=== PATIENT | female | born 1945 | race Caucasian/White ===

== ENCOUNTER 2021-08-07 09:45 | Observation (INO) | payer OTHER, SELFPAY ==
[2021-08-07] VITALS (7 sets, daily range): BP systolic 131–168; BP diastolic 61–79; PULSE 66–83; RESP 16–20; TEMP 36.5–36.8; O2SAT 95–99; BMI 41.6
--- NOTE | 2021-08-07 10:02 | DI.RAD.S_ITS ---
PROCEDURE: XR CHEST 1V INDICATIONS: Possible stroke TECHNIQUE: One view of the chest was acquired. COMPARISON: [facility], CT, CT ANGIO CHEST PE, 01/30/2021, 12:12. FINDINGS: Surgical changes and devices: None. Lungs and pleura: Lungs are clear. No pleural effusions or pneumothorax. Mediastinum: Mediastinal contours appear normal. Heart size is normal. Bones and chest wall: No suspicious bony lesions. Overlying soft tissues appear unremarkable. IMPRESSION: No acute cardiopulmonary process demonstrated radiographically. Dictated by: José Montoya M.D. on 08/07/2021 at 10:27 Approved by: José Montoya M.D. on 08/07/2021 at 10:28
--- NOTE | 2021-08-07 10:02 | DI.CT.S_ITS ---
PROCEDURE: CT HEAD/BRAIN WO CON INDICATIONS: change in vision 2 days ago TECHNIQUE: Noncontrast 4.5 mm thick angled axial sections acquired from the foramen magnum to the vertex, with coronal and sagittal reformats. For radiation dose reduction, the following was used: automated exposure control, adjustment of mA and/or kV according to patient size. COMPARISON: None. FINDINGS: Image quality: Excellent. CSF spaces: Basal cisterns are patent. No extra-axial fluid collections. The ventricles are symmetric in size and shape. Brain: No intracranial bleeds or masses. There is cerebral volume loss for age, with resultant ventricular and sulcal prominence. There are periventricular and deep white matter chronic small vessel ischemic changes. There is intracranial internal carotid artery atherosclerosis. Skull and face: Calvarium and visualized facial bones appear intact, without suspicious lesions. Sinuses: Visualized sinuses and mastoids are clear. IMPRESSION: No acute intracranial finding. Dictated by: José Montoya M.D. on 08/07/2021 at 10:26 Approved by: José Montoya M.D. on 08/07/2021 at 10:27
--- NOTE | 2021-08-07 10:05 | PC.NURSE ---
Pts sx started 2 days ago,she had some blurred vision of left eye. Pts sx lasted approx 10 minutes. Pt went to eye doctor today and was sent here. pts eyes are dilated from that.
[2021-08-07 10:20] LABS: Add Manual Diff / Slide Review NO; Basophils Absolute Auto 100 /uL (0-100); Basophils Percent Auto 0.9 % (0-2); Eosinophils Absolute Auto 100 /uL (0-450); Eosinophils Percent Auto 2.5 % (2-4); Hematocrit 39.9 % (36-46); Hemoglobin 13.3 g/dL (12.0-16.0); Lymphocytes Absolute Auto 1600 /uL (1100-4500); Lymphocytes Percent Auto 26.8 % (25-40); Mean Corpuscular HGB Conc 33.4 % (30-36); Mean Corpuscular Hemoglobin 30.1 PG (26-34); Mean Corpuscular Volume 90.2 fL (80-100); Monocytes Absolute Auto 600 /uL (0-900); Monocytes Percent Auto 10.2 % (3-14); Neutrophils Absolute Auto 3600 /uL (1500-7000); Neutrophils Percent Auto 59.6 % (50-75); Platelet Count 303 X10^3/uL (150-400); Red Blood Cell Count 4.42 X10^6/uL (4.0-5.2); Red Cell Distribution Width 13.7 % (11.6-14.8)
[2021-08-07 10:24] LABS: Prothrombin Time 11.4 SECONDS (10.1-12.7)
[2021-08-07 10:27] LABS: PTT Partial Thromboplastin Tim 47 SECONDS (26.4-36.2)
[2021-08-07 10:30] LABS: Alanine Aminotransferase 22 IU/L (<35); Albumin 4.1 g/dL (3.5-5.0); Albumin Globulin Ratio 1.4 (1.0-2.8); Alkaline Phosphatase 49 U/L (38-126); Aspartate Aminotransferase 25 IU/L (14-36); BUN Creatinine Ratio 17.5 (6-22); Bilirubin Total 0.6 mg/dL (0.2-1.3); Blood Urea Nitrogen 11 mg/dL (7-17); Calcium 9.3 mg/dL (8.4-10.2); Carbon Dioxide 31 mmol/L (22-32); Chloride 103 mmol/L (98-107); Creatine Kinase 37 U/L (30-135); Estimated Glomerular Filt Rate > 60 mL/min (>60); Glucose 96 mg/dL (80-110); HEMOLYSIS 15 (0-50); Potassium 3.9 mmol/L (3.4-5.1); Sodium 136 mmol/L (137-145); Total Protein 7.1 g/dL (6.3-8.2)
--- NOTE | 2021-08-07 10:35 | DI.MRI.S_ITS ---
PROCEDURE: MR STROKE Pre- and post-contrast brain MRI, non-contrast brain MR angiogram, pre- and postcontrast neck MR angiogram INDICATIONS: Left eye vision loss TECHNIQUE: Brain: Noncontrast axial T1 spin echo, axial T2 fast spin echo, sagittal and axial FLAIR, coronal T2 fast spin echo, axial gradient echo, axial diffusion and ADC through the brain. After the administration of contrast, axial 3D VIBE of the cranial vasculature and brain. Brain MRA: Non-contrast 3-D time of flight MR angiogram, with multiple bjktoxl-uqxhesoqj-agnhppblwo (MIP) reformats performed. Neck MRA: Axial and sagittal TruFISP through the neck. Coronal dynamic MR angiogram during administration of contrast in the arterial and venous phases, with 3-dimenstional textyub-fclclobey-mzbeycrbwr (MIP) reformats constructed from subtraction images. COMPARISON: None. FINDINGS: Image quality: Excellent. BRAIN: CSF spaces: Ventricles are normal in size and shape. Basal cisterns are patent. No extra-axial fluid collections. Brain: No intracranial bleeds or mass effects. Randolph-white matter interface is normal. Diffusion weighted images show no acute ischemic insults. Brainstem appears normal. Normal intravascular flow voids are present. No abnormal intracranial enhancement. Moderate multifocal white matter chronic ischemic change noted predominantly in frontal lobes. Skull and face: Calvarial marrow signal is normal. Orbits appear normal. Bilateral intraocular lens replacements noted. Sinuses: Sinuses and mastoids are clear. BRAIN MR ANGIOGRAM: Anterior circulation: Intracranial internal carotid arteries are normal in size and enhancement. The flow within the paired anterior cerebral arteries is normal and symmetric. The flow within the middle cerebral arteries is normal and symmetric. The anterior communicating artery is seen. No stenoses, occlusions, or aneurysms. Posterior circulation: The visualized portions of the vertebral arteries demonstrate normal caliber, and join to form a normal appearing basilar artery. The flow within the posterior cerebral arteries is normal and symmetric. No stenoses, occlusions, or aneurysms. NECK MR ANGIOGRAM: Carotids: Great vessels demonstrate a conventional anatomy as they arise from the aortic arch. The origins of the common carotid arteries appear patent. The calibers and courses of both common carotid arteries are normal. The bifurcation regions appear normal bilaterally. The internal carotid arteries demonstrate normal course and caliber. Posterior circulation: The origins of the vertebral arteries appear patent. More superior portions of both vertebral arteries demonstrate normal course and caliber, and join to form a normal appearing basilar artery. Miscellaneous: Subclavian arteries appear patent. Pre-contrast images through the neck show no soft tissue abnormalities. IMPRESSION: 1. Moderate white matter chronic ischemic change without intracranial hemorrhage, infarct or mass lesion 2. Unremarkable MR angiogram of brain without large vessel occlusion, aneurysm or vascular malformation. 3. Unremarkable MR angiogram of the neck without ICA stenosis Approved by: Juan Pablo Steele M.D. on 08/07/2021 at 10:36
--- NOTE | 2021-08-07 10:36 | ED_ITS ---
HPI - Neuro Symptoms/Deficit General Chief Complaint: Neuro Symptoms/Deficit Stated Complaint: possiable mini stroke ref. by eye Time Seen by Provider: 08/07/21 10:26 Source: patient and family Mode of arrival: Ambulatory History of Present Illness HPI Narrative: Patient here with . Sent here from ophthalmology office after eye exam this morning. I did speak with chair lift operator. Patient therefore left eye vision loss that occurred [address] Bynum, chair lift operator states to me that her eye exam is normal. She needs evaluation for TIA/stroke. Patient states 2 days ago she was driving and had randolph area in her vision the top 3rd of the visual field. Has had ongoing diffuse headache, not worst of life. Has his tory of migraines and has had these before but not had visual loss before. No numbness tingling or weakness. No slurred speech or facial droop. No confusion or altered mental status. at bedside. No history atrial fibrillation. Patient is allergic to CT IV contrast. I spoke with MRI and able to get patient MRI here today. At this time no complaints. Vision loss 2 days ago lasted 10 minutes. On Anticoagulants: Yes (feverfew only to treat migraines) Related Data Home Medications Medication Instructions Recorded Confirmed levothyroxine 75 mcg tablet 75 mcg PO DAILY 08/07/21 08/07/21 lisinopril 20 mg tablet 20 mg PO DAILY 08/07/21 08/07/21 Previous Rx's Medication Instructions Recorded aspirin 81 mg tablet,delayed 81 mg PO DAILY #30 tab 08/08/21 release Allergies Allergy/AdvReac Type Severity Reaction Status Date / Time Iodine and Iodide Containing Allergy Severe Difficulty Verified 08/07/21 10:02 Produc Breathing milk Allergy Severe Swelling Verified 08/07/21 10:02 of the Eye shrimp Allergy Severe Difficulty Verified 08/07/21 10:02 Breathing Review of Systems Review of Systems Narrative: GENERAL: Denies chills, fatigue, malaise, fever, sweats. HEENT: Denies sinus pain, ear pain, sore throat RESPIRATORY: Denies dyspnea, cough CARDIOVASCULAR: Denies chest pain, palpitations GASTROINTESTINAL: Denies nausea, vomiting, abdominal pain : Denies dysuria, frequency, hematuria MUSCULOSKELETAL: denies muscle or bony pain SKIN: Denies rash, skin lesions NEUROLOGIC: Denies weakness, numbness, positive headache, positive vision loss, negative for numbness tingling or weakness or slurred speech or facial droop ROS Unobtainable: All systems reviewed & are unremarkable except as noted in HPI and below Hematologic/Lymphatic On Anticoagulants: Yes (feverfew only to treat migraines) Patient History Social History household members: spouse Smoking Status: Never smoker alcohol intake: current Smoking Status: Never smoker alcohol intake frequency: holidays/special occasions only Substance Use Type: does not use Exam Narrative Exam Narrative: GENERAL: in no distress, not toxic not dyspneic HEAD: Normocephalic. EYES: Pupils equal round No scleral icterus. EOMI/no pain with eye movement. Pupils are dilated from ophthalmology visit this morning ENT: Mucous membranes moist. NECK: Trachea midline. No carotid bruits CARDIOVASCULAR: Regular rate and rhythm without murmurs RESPIRATORY: Clear to auscultation. Breath sounds equal bilaterally. No wheezes, rales, or rhonchi. GASTROINTESTINAL: Abdomen soft, non-tender EXTREMITIES: No gross deformities. BACK: No flank tenderness. NEURO: AOx4. Clear speech no facial droop steady self gait no foot drop. Light touch intact to bilateral face hands and ankles. Strong equal bell spinner bilaterally and ankle flexion hip flexion and knee flexion. Strong bilateral patellar reflexes. Steady Romberg, negative pronator drift SKIN: Warm and dry PSYCH: Not anxious, is cooperative Initial Vital Signs Initial Vital Signs: Vital Signs Temperature 97.9 F 08/07/21 09:45 Pulse Rate 77 08/07/21 09:45 Respiratory Rate 18 08/07/21 09:45 Blood Pressure 168/78 H 08/07/21 09:45 Pulse Oximetry 98 08/07/21 09:45 Scores NIH Stroke Scale Level of Conciousness: Alert, keenly responsive Ask month/age: Answers both questions correctly. Open/close eyes, close hand: Performs both tasks correctly Best gaze horizontal: Normal Visual malcolm: No visual loss Facial palsy: Normal symetrical movement Left arm drift: No drift for full 10 sec Right arm drift: No drift for full 10 sec Left leg drift: No drift for full 5 sec Right leg drift: No drift for full 5 sec Limb ataxia: Absent Sensory on face/arms/legs: Normal, no sensory loss Best language: No aphasia, normal Dysarthria: Normal Extinction or inattention: No abnormality Total NIH Stroke scale score: 0 Course Course Course Narrative: No new issues during course of stay Orders Ordered: Discontinued Medications Acetaminophen (Acetaminophen 325 Mg Tablet) 325 mg PO Q6HR PRN PRN Reason: Fever/Mild Pain (1-3) Last Admin: 08/08/21 09:01 Dose: 325 mg Documented by: Admin: 08/07/21 15:57 Dose: 162.5 mg Documented by: GOVIND Aspirin (Aspirin Ec 81 Mg Tablet) 81 mg PO NOW ONE Stop: 08/07/21 13:01 Last Admin: 08/07/21 13:05 Dose: 81 mg Documented by: SAIDA Aspirin (Aspirin Ec 81 Mg Tablet) 81 mg PO DAILY [facility] Last Admin: 08/08/21 09:01 Dose: 81 mg Documented by: GOVIND Clopidogrel Bisulfate (Clopidogrel 75 Mg Tablet) 75 mg PO NOW ONE Stop: 08/07/21 13:01 Last Admin: 08/07/21 13:05 Dose: 75 mg Documented by: SAIDA Clopidogrel Bisulfate (Clopidogrel 75 Mg Tablet) 75 mg PO DAILY [facility] Last Admin: 08/08/21 09:01 Dose: 75 mg Documented by: GOVIND Dextrose (Dextrose 50 % In Water 25 Gm/50 Ml Syringe) 25 gm IV PRN PRN; Protocol PRN Reason: Hypoglycemia Insulin Glargine (Insulin Glargine 100 Unit/Ml 3ml Pen) 15 unit SUBCUT BEDTIME [facility] Insulin Human Lispro (Insulin Lispro 100 Unit/Ml 3ml Vial) 0 unit SUBCUT Q6H [facility]; Protocol Last Admin: 08/08/21 10:42 Dose: Not Given Documented by: GOVIND Levothyroxine Sodium (Levothyroxine 75 Mcg Tablet) 75 mcg PO 0600 [facility] Last Admin: 08/08/21 05:39 Dose: 75 mcg Documented by: MARTY Lisinopril (Lisinopril 20 Mg Tablet) 20 mg PO BEDTIME [facility] Last Admin: 08/07/21 23:29 Dose: 20 mg Documented by: MARTY Sodium Chloride (Sodium Chloride 0.9% Flush) 10 ml IV PRN PRN PRN Reason: Flush Sodium Chloride (Sodium Chloride 0.9% Flush) 10 ml IV BID [facility] Last Admin: 08/08/21 09:02 Dose: 10 ml Documented by: Admin: 08/07/21 19:59 Dose: 10 ml Documented by: MARTY Reevaluation(s) Reevaluation #1: No new issues. Imaging and laboratory studies reviewed patient and . Reviewed my conversation with hospitalist as well as stroke team with patient and . Agree for admit. Time: 12:54 Consultations Consultation #1: Spoke with tele stroke, neurologist, Dr. Rhoades, she instructed to have patient admitted for observation and echocardiogram. As well as start aspirin 81 mg daily as well as Plavix 75 mg daily. No loading dose. Time: 11:52 Consultation #2: Spoke with hospitalist, Dr. Smart, will admit for observation Time: 12:54 Vital Signs Vital signs: Vital Signs - 8 hr 08/07/21 09:45 Temperature 97.9 F Pulse Rate 77 Respiratory Rate 18 Blood Pressure 168/78 H Pulse Oximetry 98 MDM - Neuro Symptoms/Deficit Differential Diagnosis Differential diagnosis: Likely cerebrovascular accident, transient cerebral ischemia and other (Amaurosis fugax/ocular migraine) Lab Data Result diagrams: 08/08/21 05:41 08/07/21 10:10 Labs: Lab Results 08/07/21 08/07/21 08/07/21 Range/Units 10:10 10:10 10:10 WBC 6.0 (4.5-11.0) X10^3/uL RBC 4.42 (4.0-5.2) X10^6/uL Hgb 13.3 (12.0-16.0) g/dL Hct 39.9 (36-46) % MCV 90.2 (80-100) fL MCH 30.1 (26-34) PG MCHC 33.4 (30-36) % RDW 13.7 (11.6-14.8) % Plt Count 303 (150-400) X10^3/uL Neut % (Auto) 59.6 (50-75) % Lymph % (Auto) 26.8 (25-40) % Kane % (Auto) 10.2 (3-14) % Eos % (Auto) 2.5 (2-4) % Baso % (Auto) 0.9 (0-2) % Neut # (Auto) 3600 (3346-6967) /uL Lymph # (Auto) 1600 (7754-1738) /uL Kane # (Auto) 600 (0-900) /uL Eos # (Auto) 100 (0-450) /uL Baso # (Auto) 100 (0-100) /uL PT 11.4 (10.1-12.7) SECONDS INR 1.0 (0.9-1.3) APTT 47 H (26.4-36.2) SECONDS Sodium 136 L (137-145) mmol/L Potassium 3.9 (3.4-5.1) mmol/L Chloride 103 (98-107) mmol/L Carbon Dioxide 31 (22-32) mmol/L BUN 11 (7-17) mg/dL Creatinine 0.63 (0.52-1.04) mg/dL Estimated GFR > 60 (>60) mL/min BUN/Creatinine Ratio 17.5 (6-22) Glucose 96 (80-110) mg/dL Calcium 9.3 (8.4-10.2) mg/dL Total Bilirubin 0.6 (0.2-1.3) mg/dL AST 25 (14-36) IU/L ALT 22 (<35) IU/L Alkaline Phosphatase 49 (38-126) U/L Total Creatine Kinase 37 (30-135) U/L CK-MB (CK-2) TNP CK-MB (CK-2) Rel Index TNP Troponin I < 0.012 (0.01-0.034) ng/mL Total Protein 7.1 (6.3-8.2) g/dL Albumin 4.1 (3.5-5.0) g/dL Globulin 3.0 (1.7-4.1) g/dL Albumin/Globulin Ratio 1.4 (1.0-2.8) Urine Dip Bedside Urine Glucose Negative Bedside Urine Bilirubin - Negative Bedside Urine Ketone - Negative Urine Specific Clarissa 1.015 Bedside Urine Occult Blood - Negative Bedside Urine pH 6.0 Bedside Urine Protein - Negative Bedside Urine Urobilinogen 0.02 Bedside Urine Nitrite - Negative Bedside Urine Leukocytes - Negative Esterase Imaging Data CT scan - head: Radiologist's Impression: [address] [address] [address] Scan Report Signed Patient: Ronda Brooke MR#: [id number] : 1945 Acct:[id number] Age/Sex: 76 / F Date of Service: 08/07/21 Loc: ED Accession Number: [id number] ?? Procedure: CT head/brain wo con Ordering Provider: Aamir Miles MD PROCEDURE:? CT HEAD/BRAIN WO CON ? INDICATIONS:? change in vision 2 days ago ? TECHNIQUE:? Noncontrast 4.5 mm thick angled axial sections acquired from the foramen magnum to the vertex, with coronal and sagittal reformats.? For radiation dose reduction, the following was used:? automated exposure control, adjustment of mA and/or kV according to patient size.? ? COMPARISON:? None. ? FINDINGS:? Image quality:? Excellent.? ? CSF spaces:? Basal cisterns are patent.? No extra-axial fluid collections.? The ventricles are symmetric in size and shape.? ? Brain:? No intracranial bleeds or masses.? There is cerebral volume loss for age, with resultant ventricular and sulcal prominence.? There are periventricular and deep white matter chronic small vessel ischemic changes.? There is intracranial internal carotid artery atherosclerosis.? ? Skull and face:? Calvarium and visualized facial bones appear intact, without suspicious lesions.? ? Sinuses:? Visualized sinuses and mastoids are clear.? ? IMPRESSION:? No acute intracranial finding.? ? ? Dictated by: José Montoya M.D. on 08/07/2021 at 10:26 ? ? Approved by: José Montoya M.D. on 08/07/2021 at 10:27 ? Chest x-ray: Radiologist's Impression: [place] [address] XRay Report Signed Patient: Ronda Brooke MR#: [id number] : 1945 Acct:[id number] Age/Sex: 76 / F Date of Service: 08/07/21 Loc: ED Accession Number: [id number] ?? Procedure: XR chest 1V Ordering Provider: Aamir Miles MD PROCEDURE:? XR CHEST 1V ? INDICATIONS:? Possible stroke ? TECHNIQUE:? One view of the chest was acquired.? ? COMPARISON:? [facility], CT, CT ANGIO CHEST PE, 01/30/2021, 12:12. ? FINDINGS:? ? Surgical changes and devices:? None.? ? Lungs and pleura:? Lungs are clear.? No pleural effusions or pneumothorax.? ? Mediastinum:? Mediastinal contours appear normal.? Heart size is normal.? ? Bones and chest wall:? No suspicious bony lesions.? Overlying soft tissues appear unremarkable.? ? IMPRESSION:? No acute cardiopulmonary process demonstrated radiographically. ? ? Dictated by: José Montoya M.D. on 08/07/2021 at 10:27 ? ? Approved by: José Montoya M.D. on 08/07/2021 at 10:28 ? MRI stroke protocol: Radiologist's Impression: [address] [address] Magnetic Resonance Report Signed Patient: Ronda Brooke MR#: [id number] : 1945 Acct:[id number] Age/Sex: 76 / F Date of Service: 08/07/21 Loc: ED Accession Number: [id number] ?? Procedure: MR stroke Ordering Provider: Aamir Miles MD PROCEDURE:? MR STROKE Pre- and post-contrast brain MRI, non-contrast brain MR angiogram, pre- and postcontrast neck MR angiogram ? INDICATIONS:? Left eye vision loss ? TECHNIQUE:? Brain:? Noncontrast axial T1 spin echo, axial T2 fast spin echo, sagittal and axial FLAIR, coronal T2 fast spin echo, axial gradient echo, axial diffusion and ADC through the brain.? After the administration of contrast, axial 3D VIBE of the cranial vasculature and brain.? Brain MRA:? Non-contrast 3-D time of flight MR angiogram, with multiple yohpwqy-gbogczdxa-mlanqhyemz (MIP) reformats performed.? Neck MRA:? Axial and sagittal TruFISP through the neck.? Coronal dynamic MR angiogram during administration of contrast in the arterial and venous phases, with 3- dimenstional hjbdguv-djagvzcwt-atuspmpvfm (MIP) reformats constructed from subtraction images.? ? COMPARISON:? None. ? FINDINGS:? Image quality:? Excellent.? ? BRAIN:? CSF spaces:? Ventricles are normal in size and shape.? Basal cisterns are patent.? No extra-axial fluid collections.? Brain:? No intracranial bleeds or mass effects.? Randolph-white matter interface is normal.? Diffusion weighted images show no acute ischemic insults.? Brainstem appears normal.? Normal intravascular flow voids are present.? No abnormal intracranial enhancement.? Moderate multifocal white matter chronic ischemic change noted predominantly in frontal lobes. Skull and face:? Calvarial marrow signal is normal.? Orbits appear normal.? Bilateral intraocular lens replacements noted.? Sinuses:? Sinuses and mastoids are clear.? ? BRAIN MR ANGIOGRAM:? Anterior circulation:? Intracranial internal carotid arteries are normal in size and enhancement.? The flow within the paired anterior cerebral arteries is normal and symmetric.? The flow within the middle cerebral arteries is normal and symmetric.? The anterior communicating artery is seen.? No stenoses, occlusions, or aneurysms.? Posterior circulation:? The visualized portions of the vertebral arteries demonstrate normal caliber, and join to form a normal appearing basilar artery.? The flow w ithin the posterior cerebral arteries is normal and symmetric.? No stenoses, occlusions, or aneurysms.? ? NECK MR ANGIOGRAM:? Carotids:? Great vessels demonstrate a conventional anatomy as they arise from the aortic arch.? The origins of the common carotid arteries appear patent.? The calibers and courses of both common carotid arteries are normal.? The bifurcation regions appear normal bilaterally.? The internal carotid arteries demonstrate normal course and caliber. ? Posterior circulation:? The origins of the vertebral arteries appear patent.? More superior portions of both vertebral arteries demonstrate normal course and caliber, and join to form a normal appearing basilar artery.? Miscellaneous:? Subclavian arteries appear patent.? Pre-contrast images through the neck show no soft tissue abnormalities.? ? IMPRESSION:? ? 1. Moderate white matter chronic ischemic change without intracranial hemorrhage, infarct or mass lesion ? 2. Unremarkable MR angiogram of brain without large vessel occlusion, aneurysm or vascular malformation. ? 3. Unremarkable MR angiogram of the neck without ICA stenosis ? Approved by: Juan Pablo Steele M.D. on 08/07/2021 at 10:36? ECG Data Interpretation: Normal sinus rhythm rate [address] elevation or depression MDM Narrative Medical decision making narrative: Appropriate for admission for observation for TIA event. Reviewed with hospitalist agree for admit. Reviewed with patient and agrees for admit. I did contact tele stroke, neurologist on-call for recommendations and agree for admit for balance of workup for TIA/stroke Discharge Plan Departure Patient Disposition: Admitted as Observation Clinical Impression: Transient cerebral ischemia Admit Date/Time: 08/07/21 12:53 Admit Provider: Alice Smart
[2021-08-07 10:42] LABS: Troponin I < 0.012 ng/mL (0.01-0.034)
--- NOTE | 2021-08-07 11:52 | DI.ECHO.S_ITS ---
[facility] +---------+ : : [address] : : : : [id number] : : : : Phone: [phone]+ Echocardiogram Report + + :Name: CHEYENNE VICENTE Study Date: 08/07/2021 Height: 63 in : :[facility] ReadingLocation: Weight: 235 lb : : Gender: Female BSA: 2.1 m2 : :: 1945 Age: 76 yrs BP: 168/78 mmHg: :Reason For Study: TIA : :Ordering Physician: : :PEBBLES HARPER Performed By: Barrie Arndt : :Referring: PEBBLES HARPER : + + Interpretation Summary Left ventricular wall thickness is mildly increased. The ejection fraction is estimated to be 55-60%. Injection of contrast documented no interatrial shunt. There is mild aortic regurgitation. Procedure: A two-dimensional transthoracic echocardiogram with color flow and Doppler was performed. The study quality was technically adequate. There is no prior echocardiogram noted for this patient. Left Ventricle: The left ventricle is normal in size. Left ventricular wall thickness is mildly increased. Left ventricular systolic function is normal. The ejection fraction is estimated to be 55-60%. There are no focal wall motion abnormalities. Diastolic function could not be accurately assessed due to unobtainable data. Right Ventricle: The right ventricle is normal in size and function. Atria: Both atria are normal in size. The interatrial septum grossly appears intact with no obvious evidence for an atrial septal defect. Injection of contrast documented no interatrial shunt. Mitral Valve: There is mild mitral annular calcification. There is trace mitral regurgitation. Aortic Valve: The aortic valve is normal in structure and function. There is mild aortic regurgitation. Tricuspid Valve: The tricuspid valve is normal in structure and function. There is trace tricuspid regurgitation. Pulmonary artery pressures cannot be estimated because of the lack of a measurable TR jet velocity. Pulmonic Valve: The pulmonic valve is not well visualized. Great Vessels: The aortic root is normal size. The ascending aorta could not be visualized. The IVC is of normal diameter and collapses greater than 50% with a sniff. This suggests a low right atrial pressure of 3 mm Hg. Pericardium/ Pleura There is no pericardial effusion. There is no pleural effusion. MMode/2D Measurements & Calculations LVIDd: 5.2 cm LVOT diam: 1.8 cm LVIDs: 3.8 cm Ao root diam: 3.2 cm FS: 27.5 % IVSd: 1.2 cm LVPWd: 0.78 cm LV reyes. diameter/BSA (cm/m^2): 2.5 LV sys. diameter/BSA (cm/m^2): 1.8 LA A2 area: 19.9 cm2 RA long axis: 5.8 cm LA A4 area: 20.4 cm2 RA area: 17.2 cm2 LA length (vol): 6.1 cm RA vol: 43.6 ml LA vol: 56.6 ml RA : 21.0 ml/m2 LA vol index: 27.4 ml/m2 IVC diam: 2.1 cm TAPSE: 2.7 cm Doppler Measurements & Calculations Ao V2 max: 185.8 cm/sec LVOT Max Nura: 157.9 cm/sec Ao V2 mean: 128.0 cm/sec LV V1 max P.0 mmHg Ao max P.8 mmHg LV V1 VTI: 37.4 cm Ao mean P.4 mmHg JAIR(I,D): 2.6 cm2 Ao V2 VTI: 38.3 cm JAIR(V,D): 2.2 cm2 sev ratio: 0.98 JAIR indexed to BSA (cm^2/m^2): 1.2 AI P1/2t: 617.4 msec AI dec slope: 217.1 cm/sec2 MV E max nura: 70.6 cm/sec SV(LVOT): 98.1 ml MV A max nura: 73.6 cm/sec MV E/A: 0.96 Med Peak E' Nura: 4.3 cm/sec E/E' med: 16.5 Lat Peak E' Nura: 9.9 cm/sec E/E' lat: 7.2 E/e' average: 11.8 MV dec time: 0.27 sec Reading Physician:02:08 PM
--- NOTE | 2021-08-07 12:02 | PC.NURSE ---
ECHO being perfomred in room
[2021-08-07] MEDS: CLOPIDOGREL 75 MG TABLET PO (13:05)
[2021-08-07] MEDS: ASPIRIN EC 81 MG TABLET PO (13:05)
[2021-08-07 13:28] LABS: COVID19 -Nasal RAPID Negative (Negative)
[2021-08-07] MEDS: ACETAMINOPHEN 325 MG TABLET PO (15:57)
--- NOTE | 2021-08-07 17:07 | PM.HP.1 ---
History of Present Illness History of Present Illness Chief complaint: possiable mini stroke ref. by eye drAriadne Narrative: 76yo female with a hx of hypertension and hypothyroidism that presented with left eye partial vision loss that has since self-resolved. The patient states this all started approximately 3-4 days ago, when she developed migraine headaches that she describes as a band of throbbing pain, bilaterally. She denies nausea, vision changes, or disability from these migraine headaches. She denies taking any medicine for this, aside from Mucinex, as she thought it might be sinus-related. Importantly, she denies taking pseudoephedrine-containing medicines. This worsened 2 days ago, when she was driving to physical therapy. She recently sustained 3 left-sided, non-surgical rib fractures after a mechanical fall at home, and this is why she goes to PT. While driving there, she noticed a curtain falling over my left eye that then improved after 10-15 minutes on its own. She denies this has ever happened before. Denies seizure-like activity when this occurred, hand/arm/leg weakness, facial droop, language difficulties, denies n/v, and denies tremors or heart racing at the time and denies being hypoglycemic as she'd just eaten. Today, the patient went to an freight separator, who completed a full eye exam and found it to be unremarkable, and so sent pt here for evaluation. Patient denies ever smoking tobacco or using illicit drugs or drinking EtOH excessively. She endorses a PSH of partial hysterectomy, appendectomy. 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 She lives nearby with her . Patient History Family & Social History Social History: household members spouse Prior Living Arrangements House Safety & Behavioral: Feels Safe in Current Yes Environment Been Physically Hurt or No Threatened By a Person Tobacco & Substance use: Smoking Status Never smoker alcohol intake current alcohol intake frequency holiday/special occasion Substance Use Type does not use Meds Home Medications and Allergies Home Medications Medication Instructions Recorded Confirmed Type levothyroxine 75 mcg tablet 75 mcg PO DAILY 08/07/21 08/07/21 History lisinopril 20 mg tablet 20 mg PO DAILY 08/07/21 08/07/21 History Allergies Allergy/AdvReac Type Severity Reaction Status Date / Time Iodine and Iodide Containing Allergy Severe Difficulty Verified 08/07/21 10:02 Produc Breathing milk Allergy Severe Swelling Verified 08/07/21 10:02 of the Eye shrimp Allergy Severe Difficulty Verified 08/07/21 10:02 Breathing IV Contrast Allergy Severe Difficulty Uncoded 08/07/21 10:02 Breathing Review of Systems Constitutional Comments: Denies fever/chills, night sweats, weight loss Eyes Comments: Endorses left eye vision loss that has since returned Cardiovascular Comments: Denies CP, palpitations, edema Respiratory Comments: Denies SOB, cough, URI sxs Gastrointestinal Comments: Denies abd pain, n/v/d Integumentary/Breasts Comments: Denies new skin lesions Neurologic Comments: Denies hand/arm/leg weakness, expressive/receptive aphasia, seizure-like activity, or urinary/bowel incontinence Exam Vital Signs (past 8 hours): - 08/07/21 09:45 08/07/21 13:27 08/07/21 13:32 Temperature 97.9 F Pulse Rate 77 81 82 Respiratory Rate 18 20 Blood Pressure 168/78 H 145/78 H 136/61 Pulse Oximetry 98 98 96 Oxygen Delivery Method Room Air Const Other: Patient sitting up in bed upon my entering the room, ordering dinner, and in no apparent acute distress, larger body habitus noted Eyes Other: EOMI, PERRLA Neck Other: No carotid bruits appreciated Resp Other: Lungs clear to auscultation bilaterally Cardio Other: RRR, S1 and S2 heart sounds normal, with no extra heart sounds or murmurs appreciated GI Other: Soft, non-distended, non-tender, bowel sounds present Skin Other: No grossly abnormal skin lesions noted Neuro Other: CN II-XII grossly intact, with no focal neurological deficits appreciated Extrem Other: Palpable radial and dorsalis pedis pulses bilaterally Objective Labs Result Diagrams: 08/07/21 10:10 08/07/21 10:10 Labs: Laboratory Results - last 24 hr 08/07/21 08/07/21 08/07/21 10:10 10:10 10:10 WBC 6.0 RBC 4.42 Hgb 13.3 Hct 39.9 MCV 90.2 MCH 30.1 MCHC 33.4 RDW 13.7 Plt Count 303 Neut % (Auto) 59.6 Lymph % (Auto) 26.8 [place] % (Auto) 10.2 Eos % (Auto) 2.5 Baso % (Auto) 0.9 Neut # (Auto) 3600 Lymph # (Auto) 1600 [place] # (Auto) 600 Eos # (Auto) 100 Baso # (Auto) 100 PT 11.4 INR 1.0 APTT 47 H Sodium 136 L Potassium 3.9 Chloride 103 Carbon Dioxide 31 BUN 11 Creatinine 0.63 Estimated GFR > 60 BUN/Creatinine Ratio 17.5 Glucose 96 Calcium 9.3 Total Bilirubin 0.6 AST 25 ALT 22 Alkaline Phosphatase 49 Total Creatine Kinase 37 CK-MB (CK-2) TNP CK-MB (CK-2) Rel Index TNP Troponin I < 0.012 Total Protein 7.1 Albumin 4.1 Globulin 3.0 Albumin/Globulin Ratio 1.4 SARS-CoV-2 (PCR) 08/07/21 12:54 WBC RBC Hgb Hct MCV MCH MCHC RDW Plt Count Neut % (Auto) Lymph % (Auto) [place] % (Auto) Eos % (Auto) Baso % (Auto) Neut # (Auto) Lymph # (Auto) [place] # (Auto) Eos # (Auto) Baso # (Auto) PT INR APTT Sodium Potassium Chloride Carbon Dioxide BUN Creatinine Estimated GFR BUN/Creatinine Ratio Glucose Calcium Total Bilirubin AST ALT Alkaline Phosphatase Total Creatine Kinase CK-MB (CK-2) CK-MB (CK-2) Rel Index Troponin I Total Protein Albumin Globulin Albumin/Globulin Ratio SARS-CoV-2 (PCR) Negative Assessment & Plan Assessment & Plan narrative: Assessment: 1. Amaurosis fugax, left orbit, likely secondary to TIA, self-resolved 2. Possible VERENICE, leading to silent atrial fibrillation 3. Obesity, class 3, with BMI 42 4. Hypertension 5. Hypothyroidism Plan: 1. CT head, MRI/MRA head/neck unremarkable, with echocardiogram negative for PFO. Aspirin 81 mg daily and Plavix 75 mg daily for 21 days, and then can continue on aspirin 81 mg daily monotherapy. Risk stratification labs ordered. Telemetry on-board. 2. STOP-BANG score is high, and patient would benefit from outpatient sleep study. Untreated VERENICE could be leading to silent atrial fibrillation, which might explain patient's presenting complaints. 3. Likely adversely affecting all pt's comorbidities. Counseling provided. 4. Continue home lisinopril 20 mg daily. 5. Continue home levothyroxine 75 mcg daily. VTE prophylaxis: SCD's, observation status, anticipate discharge tomorrow Code Status: Full Code Proxy: I have utilized all available immediate resources to obtain, update, or confirm the patient's current medications. Time Spent With Patient Critical Care time: I spent a total of [] minutes of critical care time on this patient's care today; this time is exclusive of procedural time. Quality VTE Deep Vein Thrombosis/Pulmonary Embolism Present on Admission: No MIPS - Admit I confirm the patient?s Advance Care Plan is present, Code status is documented, Surrogate decision maker is in patient?s record [If Yes, STOP here]: Yes
[2021-08-07] MEDS: SODIUM CHLORIDE 0.9% FLUSH 10 ML IV (19:59)
[2021-08-07] MEDS: lisinopriL 20 MG TABLET PO (23:29)
[2021-08-08] MEDS: LEVOTHYROXINE 75 MCG TABLET PO (05:39)
[2021-08-08 05:58] LABS: Hematocrit 37.7 % (36-46); Hemoglobin 12.5 g/dL (12.0-16.0); Mean Corpuscular HGB Conc 33.1 % (30-36); Mean Corpuscular Hemoglobin 29.8 PG (26-34); Platelet Count 280 X10^3/uL (150-400); Red Blood Cell Count 4.19 X10^6/uL (4.0-5.2); Red Cell Distribution Width 13.8 % (11.6-14.8); White Blood Cell Count 5.5 X10^3/uL (4.5-11.0)
[2021-08-08 06:08] VITALS: BP 130/75; PULSE 66; RESP 16; TEMP 36.6; O2SAT 96
[2021-08-08 06:10] LABS: Cholesterol 197 mg/dL (140-199); HDL Cholesterol 58 mg/dL (40-60); LDL Cholesterol Calculated 122 mg/dL (<100); Triglycerides 85 mg/dL (35-150)
[2021-08-08 06:14] LABS: Hemoglobin A1C% w Est Avg Glu 5.5 % (4.0-6.0)
[2021-08-08 08:07] VITALS: BP 126/68; PULSE 64; RESP 19; TEMP 36.2; O2SAT 98
[2021-08-08] MEDS: CLOPIDOGREL 75 MG TABLET PO (09:01)
[2021-08-08] MEDS: ACETAMINOPHEN 325 MG TABLET PO (09:01)
[2021-08-08] MEDS: ASPIRIN EC 81 MG TABLET PO (09:01)
[2021-08-08] MEDS: SODIUM CHLORIDE 0.9% FLUSH 10 ML IV (09:02)
[2021-08-08 09:38] LABS: C-Reactive Protein Quant < 0.5 mg/dL (<1.0)
[2021-08-08 09:53] LABS: Erythrocyte Sedimentation Rate 16 MM/HR (0-20)
--- NOTE | 2021-08-08 10:34 | CM.DANOTE ---
Discharge Assessment Note: Patient is 76yo female admitted to hospitalist team for possible TIA with amaurosis fugax symptom reported for observation with anticipated discharge of 08/08. Per hospitalist in rounds 08/08, patient is pending test results prior to discharge decision being finalized for today. Patient does anticipate and want to discharge home as soon as medically ready. PCP: Db Hayward INS: [place] Medicare Adv Patient alone in room when social worker assistant entered; social worker assistant introduced self and informed of social work role in hospital. Patient reports no history with SNF or HH, no O2 use at home and no DME or adaptive devices used/needed at this time. Patient reports being fully independent at home and drives self. Patient has steps to enter mobile home but no other stairs in home; patient reports no concerns with stairs. Patient resides with spouse who is able to be her transportation home via POV at time of discharge. No identified discharge planning needs at this time. Osorio SCHULZ Discharge Planning/Care Management CM Discharge Assessment Start: 08/08/21 10:32 Freq: Status: Active Protocol: Document 08/08/21 10:32 GAYLE (Rec: 08/08/21 10:34 GAYLE [id number]) Discharge Planning Assessment Assigned [facility] Pharmacy Technician Osorio SCHULZ DPOA/Assigned Designee Name SpouseObi Contact Information [phone] Advance Directives? Yes Advance Directives on File No History Provided By Patient,Medical Record Has Patient been admitted in last 30 No days? Prior Living Arrangements Mobile home Household Members spouse Type of transporation used prior to Drives own vehicle admit Independent with ADL's Yes Is patient alert and oriented? Yes Caregiver for Another No Barriers to Discharge No Discharge Plan Home Transportation Arrangement spouse via pov Referrals Initiated None needed Whiteboard Updated in Patient Room with Yes name and ext. # of [facility] Pharmacy Technician Review Status In Process Next Review Type Continued Stay Review
--- NOTE | 2021-08-08 10:46 | PM.DS.1 ---
History of Present Illness History of Present Illness Date Patient Seen: 08/08/21 Chief complaint: possiable mini stroke ref. by eye drAriadne Narrative: 76yo female with a hx of hypertension and hypothyroidism that presented with left eye partial vision loss that has since self-resolved. The patient states this all started approximately 3-4 days ago, when she developed migraine headaches that she describes as a band of throbbing pain, bilaterally. She denies nausea, vision changes, or disability from these migraine headaches. She denies taking any medicine for this, aside from Mucinex, as she thought it might be sinus-related. Importantly, she denies taking pseudoephedrine-containing medicines. This worsened 2 days ago, when she was driving to physical therapy. She recently sustained 3 left-sided, non-surgical rib fractures after a mechanical fall at home, and this is why she goes to PT. While driving there, she noticed a curtain falling over my left eye that then improved after 10-15 minutes on its own. She denies this has ever happened before. Denies seizure-like activity when this occurred, hand/arm/leg weakness, facial droop, language difficulties, denies n/v, and denies tremors or heart racing at the time and denies being hypoglycemic as she'd just eaten. Today, the patient went to an business support professional, who completed a full eye exam and found it to be unremarkable, and so sent pt here for evaluation. Patient denies ever smoking tobacco or using illicit drugs or drinking EtOH excessively. She endorses a PSH of partial hysterectomy, appendectomy. 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 She lives nearby with her . Discharge Providers Provider Date of admission: 08/07/21 12:53 Discharge Date: 08/08/21 Primary care physician: Db Hayward MD Discharge provider: Benji Rosales MD Summary Hospital Course Discharge Diagnosis: 1. Amaurosis fugax, left orbit, likely secondary to TIA, self-resolved 2. Possible VERENICE, leading to silent atrial fibrillation 3. Obesity, class 3, with BMI 42 4. Hypertension 5. Hypothyroidism Hospital Course: 1. CT head, MRI/MRA head/neck unremarkable, with echocardiogram negative for PFO. Aspirin 81 mg daily and Plavix 75 mg daily, rationalized on discharge to just aspirin given the uniformly negative workup. CRP and ESR checked on day of discharge due to complaint of left temporal headache. They were both normal, making temporal arteritis as the cause of her visual symptoms very, very unlikely. 2. STOP-BANG score is high, and patient would benefit from outpatient sleep study. Untreated VERENICE could be leading to silent atrial fibrillation, which might explain patient's presenting complaints. 3. Likely adversely affecting all pt's comorbidities. Counseling provided. 4. Continue home lisinopril 20 mg daily. 5. Continue home levothyroxine 75 mcg daily. Status at Discharge Cognitive/behavioral status at discharge: oriented Functional status at discharge: independent ambulation Overall status at discharge: patient is back to baseline Exam Vital Signs (past 8 hours): - 08/08/21 06:08 08/08/21 08:07 Temperature 97.9 F 97.2 F L Pulse Rate 66 64 Respiratory Rate 16 19 Blood Pressure 130/75 126/68 Pulse Oximetry 96 98 Oxygen Delivery Method Room Air Oxygen Flow Rate 0 Narrative Exam Narrative: She is alert and oriented x3. No apparent distress. Heart is regular rate and rhythm without murmur Lungs are clear to auscultation bilaterally Extremities have no ankle edema Neurological exam There is no left temporal tortuous city or tenderness. Cranial nerves 2-12 test intact. Motor function is symmetric. Speech and vision are not affected. Objective Labs Result Diagrams: 08/08/21 05:41 08/07/21 10:10 Labs: Laboratory Results - last 24 hr 08/07/21 08/08/21 08/08/21 12:54 05:41 05:41 WBC 5.5 RBC 4.19 Hgb 12.5 Hct 37.7 MCV 90.0 MCH 29.8 MCHC 33.1 RDW 13.8 Plt Count 280 ESR Hemoglobin A1c 5.5 C-Reactive Protein Triglycerides Cholesterol LDL Cholesterol, Calc HDL Cholesterol TSH SARS-CoV-2 (PCR) Negative 08/08/21 08/08/21 08/08/21 05:41 05:41 05:41 WBC RBC Hgb Hct MCV MCH MCHC RDW Plt Count ESR 16 Hemoglobin A1c C-Reactive Protein Triglycerides 85 Cholesterol 197 LDL Cholesterol, Calc 122 H HDL Cholesterol 58 TSH 1.70 SARS-CoV-2 (PCR) 08/08/21 05:41 WBC RBC Hgb Hct MCV MCH MCHC RDW Plt Count ESR Hemoglobin A1c C-Reactive Protein < 0.5 Triglycerides Cholesterol LDL Cholesterol, Calc HDL Cholesterol TSH SARS-CoV-2 (PCR) [facility] Social History household members: spouse Smoking Status: Never smoker alcohol intake: current Discharge Plan Discharge Plan Patient Disposition: Home Provider Discharge Comment: Follow up with Dr. Hayward in 1-2 weeks Discharge orders & Medications Prescriptions: New aspirin 81 mg Tablet,Delayed Release (Dr/Ec) 81 mg PO DAILY Qty: 30 0RF Continued lisinopril 20 mg tablet 20 mg PO DAILY 0RF levothyroxine 75 mcg tablet 75 mcg PO DAILY 0RF Follow up/Referrals: Db Hayward MD [Primary Care Provider] - Diet/Activity/Treatments Diet: Low-cholesterol Visit Report/Discharge Packet Instructions: Transient Ischemic Attack, DI for Transient Ischemic Attack, How to Prevent Falls Discharge Data Primary Care Provider: Db Hayward Attending Provider: Alice Smart VTE Deep Vein Thrombosis/Pulmonary Embolism Present on Admission: No
--- NOTE | 2021-08-08 11:33 | PC.NURSE ---
Day shift: Paperwork signed and all questions answered. NIH remains 0. She does still c/o mild headache. Pt has all personal belongings. Her spouse is driving her home. She will be taken to that car via WC by [employer] OFF[employer]ER. Pt states I'm glad to go home today. Encouraged to f/u with Dr Hayward and to call for appointment on Tuesday.
--- NOTE | 2021-08-08 11:57 | PC.NURSE ---
Day shift: here and Pt left unit at approx 1155 via WC and helped by ADDIE Beltre.
== END 2021-08-08 11:58 | disposition home or self-care (01) ==
LOC: ED 10:38 → AC 12:54
PROVIDERS: Family Medicine; Admitting Provider Student in an Organized Health Care Education/Training Program; Emergency Provider Emergency Medicine; Family Provider Internal Medicine; PCP Internal Medicine; Referring Provider Emergency Medicine; Visit Provider Student in an Organized Health Care Education/Training Program
DX: G45.3 Amaurosis fugax (principal); R29.700 NIHSS score 0; E66.9 Obesity, unspecified; I10 Essential (primary) hypertension; E03.9 Hypothyroidism, unspecified; Z68.41 Body mass index [BMI] 40.0-44.9, adult
CPT/HCPCS: 36415; 70450; 70548; 70553; 71045; 80053; 80061; 81003; 82550; 83036; 84443; 84484; 85025; 85027; 85610; 85651; 85730; 86140; 87635; 93005; 93306; 99285; C9803; G0378; J1815